=== PATIENT | female | born 1955 | race American Indian/Alaskan Native ===

== ENCOUNTER 2017-12-07 20:11 | Inpatient (IN) | payer MEDICARE ==
[2017-12-07] MEDS ORDERED: DUONEB *Not for PRN Use IH ONE (20:24)
--- NOTE | 2017-12-08 00:26 | Emergency Department Report ---
ED Shortness of Breath HPI - General Chief Complaint: Dyspnea/Respdistress Stated Complaint: PRATEEK / SOB Time Seen by Provider: 12/08/17 00:22 Source: patient Mode of arrival: Ambulatory Limitations: No Limitations - History of Present Illness Initial Comments: 62-year-old female that presents emergency room with complaints of respiratory distress and discharged on exertion and shortness of breath and chest pain for 3 days. . Patient states she feels bad for the last 3 days. Patient states she ran out of her inhalers any months ago. Patient states she supposed be taking Advair and albuterol when necessary. Patient has a history of COPD and multiple COPD exacerbations. Patient denies fever and chills. Patient denies diaphoresis. Patient states the chest pain is in her left chest, substernal and nonradiating. Patient states that all her symptoms are worse with exertion and movement and walking and talking. Patient states they're better with rest. MD Complaint: shortness of breath, cough, chest pain -: Sudden, days(s) Severity: severe (3 days) Pain Scale: 6 Quality: throbbing, sharp, stabbing Consistency: constant Improves With: oxygen, rest, bronchodilators Worsens With: lying flat, exertion, movement, coughing, inspiration Known History Of: COPD, asthma Context: recent URI, medication noncompliance Associated Symptoms: chest pain, pain with inspiration, cough, sputum production Treatments Prior to Arrival: bronchodilator - Related Data Home Oxygen Therapy: No Allergies Allergy/AdvReac Type Severity Reaction Status Date / Time IVP Dye Allergy Unknown Uncoded 12/07/17 20:19 ED Review of Systems ROS: Stated complaint: PRATEEK / SOB Other details as noted in HPI Comment: All other systems reviewed and negative Constitutional: denies: chills, fever Eyes: denies: eye pain, eye discharge, vision change ENT: denies: ear pain, throat pain Respiratory: see HPI, cough, orthopnea, shortness of breath, SOB with exertion, SOB at rest, wheezing Cardiovascular: chest pain. denies: palpitations Endocrine: no symptoms reported Gastrointestinal: denies: abdominal pain, nausea, diarrhea Genitourinary: denies: urgency, dysuria, discharge Musculoskeletal: denies: back pain, joint swelling, arthralgia Skin: denies: rash, lesions Neurological: denies: headache, weakness, paresthesias Psychiatric: denies: anxiety, depression Hematological/Lymphatic: denies: easy bleeding, easy bruising ED Past Medical Hx - Past Medical History Previous Medical History?: Yes Hx Asthma: Yes Hx COPD: Yes Additional medical history: bronchitis - Surgical History Past Surgical History?: No - Family History Family history: hypertension - Social History Smoking Status: Current Every Day Smoker Substance Use Type: None ED Physical Exam - General Limitations: No Limitations General appearance: alert, in no apparent distress - Head Head exam: Present: atraumatic, normocephalic - Eye Eye exam: Present: normal appearance - ENT ENT exam: Present: mucous membranes moist - Neck Neck exam: Present: normal inspection - Respiratory Respiratory exam: Present: normal lung sounds bilaterally. Absent: respiratory distress - Cardiovascular Cardiovascular Exam: Present: regular rate, normal rhythm. Absent: systolic murmur, diastolic murmur, rubs, gallop - GI/Abdominal GI/Abdominal exam: Present: soft, normal bowel sounds - Extremities Exam Extremities exam: Present: normal inspection - Back Exam Back exam: Present: normal inspection - Neurological Exam Neurological exam: Present: alert, oriented X3 - Psychiatric Psychiatric exam: Present: normal affect, normal mood - Skin Skin exam: Present: warm, dry, intact, normal color. Absent: rash ED Course Vital Signs 12/07/17 12/07/17 12/07/17 20:19 20:44 21:00 Temperature 98.5 F Pulse Rate 108 H Pulse Rate [ 88 91 H Anterior Bilateral Throughout] Respiratory 22 Rate Respiratory 22 20 Rate [Anterior Bilateral Throughout] Blood Pressure 162/103 O2 Sat by Pulse 99 Oximetry 12/08/17 12/08/17 12/08/17 00:48 01:00 01:11 Temperature Pulse Rate 73 73 Pulse Rate [ Anterior Bilateral Throughout] Respiratory 34 H Rate Respiratory Rate [Anterior Bilateral Throughout] Blood Pressure 137/77 145/76 O2 Sat by Pulse 94 95 Oximetry 12/08/17 12/08/17 12/08/17 01:12 01:15 01:30 Temperature Pulse Rate 87 75 Pulse Rate [ Anterior Bilateral Throughout] Respiratory 22 27 H 14 Rate Respiratory Rate [Anterior Bilateral Throughout] Blood Pressure 141/93 137/98 O2 Sat by Pulse 96 97 95 Oximetry 12/08/17 12/08/17 12/08/17 01:45 02:01 02:15 Temperature Pulse Rate 81 69 74 Pulse Rate [ Anterior Bilateral Throughout] Respiratory 25 H 26 H 29 H Rate Respiratory Rate [Anterior Bilateral Throughout] Blood Pressure 136/94 O2 Sat by Pulse 97 96 97 Oximetry 12/08/17 12/08/17 12/08/17 02:31 02:45 03:00 Temperature Pulse Rate 76 73 68 Pulse Rate [ Anterior Bilateral Throughout] Respiratory 33 H 32 H 31 H Rate Respiratory Rate [Anterior Bilateral Throughout] Blood Pressure 132/93 132/93 131/92 O2 Sat by Pulse 96 97 92 Oximetry 12/08/17 12/08/17 12/08/17 03:15 03:31 03:45 Temperature Pulse Rate 66 68 Pulse Rate [ Anterior Bilateral Throughout] Respiratory 28 H 18 Rate Respiratory Rate [Anterior Bilateral Throughout] Blood Pressure 131/92 131/92 131/92 O2 Sat by Pulse 97 97 96 Oximetry 12/08/17 04:01 Temperature Pulse Rate Pulse Rate [ Anterior Bilateral Throughout] Respiratory Rate Respiratory Rate [Anterior Bilateral Throughout] Blood Pressure 131/92 O2 Sat by Pulse 100 Oximetry - Reevaluation(s) Reevaluation #1: Discussed plan to admit patient with patient. All labs and results discussed with patient. Patient agrees with plan of care 12/08/17 03:36 ED Medical Decision Making - Lab Data Result diagrams: 12/08/17 00:41 12/08/17 00:41 - EKG Data -: EKG Interpreted by Me EKG shows normal: sinus rhythm, axis, intervals, QRS complexes, ST-T waves Rate: normal - EKG Data Interpretation: no acute changes, normal EKG - Radiology Data Radiology results: report reviewed, image reviewed interpreted by me: No acute findings - Medical Decision Making Patient is a 62-year-old female who presents to emergency room with chest pain shortness of breath and COPD exacerbation. Will discuss case with hospitalist or admission. Dr. Brady agreed to admit. - Differential Diagnosis copd. cp. sob. copd exac. cough Critical care attestation.: If time is entered above; I have spent that time in minutes in the direct care of this critically ill patient, excluding procedure time. ED Disposition Clinical Impression: Chest pain, Shortness of breath, COPD exacerbation Disposition: OP ADMIT IP TO THIS HOSP Is pt being admited?: Yes Does the pt Need Aspirin: No Condition: Serious Time of Disposition: 04:04
[2017-12-08] MEDS ORDERED: ASPIRIN PO ONE (00:28)
[2017-12-08 00:58] LABS: Basophils % (Auto) 0.3 % (0.0-1.8); Eosinophils # (Auto) 0.4 K/mm3 (0.0-0.4); Eosinophils % (Auto) 3.3 % (0.0-4.3); Hematocrit 32.6 % (30.3-42.9); Hemoglobin 10.6 gm/dl (10.1-14.3); Lymphocytes # (Auto) 1.8 K/mm3 (1.2-5.4); Lymphocytes % (Auto) 14.8 % (13.4-35.0); Mean Corpuscular HGB Conc 33 % (30-34); Mean Corpuscular Hemoglobin 29 pg (28-32); Mean Corpuscular Volume 88 fl (79-97); Monocytes # (Auto) 0.8 K/mm3 (0.0-0.8); Monocytes % (Auto) 6.4 % (0.0-7.3); Platelet Count 234 K/mm3 (140-440); Red Cell Distribution Width 11.9 % (13.2-15.2)
[2017-12-08 01:19] LABS: INR 0.96 (0.87-1.13)
[2017-12-08 01:20] LABS: Partial Thromboplastin Time 36.5 Sec. (24.2-36.6)
--- NOTE | 2017-12-08 01:22 | XRay Report ---
FINAL REPORT EXAM: XR CHEST 1V AP HISTORY: Chest Pain COMPARISON: None available. FINDINGS: Frontal view(s) of the chest obtained. Cardiac silhouette within normal limits. No gross consolidation or effusion. No pneumothorax. IMPRESSION: No grossly acute findings.
[2017-12-08 01:28] LABS: Alanine Aminotransferase 13 units/L (7-56); BUN/Creatinine Ratio 23; Blood Urea Nitrogen 18 mg/dL (7-17); Calcium 8.9 mg/dL (8.4-10.2); Hemolysis Index 0
[2017-12-08] MEDS ORDERED: ROCEPHIN/NS 1 GM/50 ML 1 GM/50 ML BAG IV ONE (02:36)
[2017-12-08] MEDS ORDERED: cefTRIAXone 1 GM in NACL 0.9% 20 ML IV ONE (03:00)
[2017-12-08] MEDS ORDERED: DUONEB *Not for PRN Use IH ONE (04:17)
[2017-12-08] MEDS ORDERED: DUONEB *Not for PRN Use IH SCH (08:00)
--- NOTE | 2017-12-08 08:19 | History and Physical Report ---
History of Present Illness Date of examination: 12/08/17 Date of admission: 12/08/17 06:49 Chief complaint: Shortness of breath History of present illness: Patient is a 62 year female with past medical history of multiple allergies, asthma, possible COPD who reports that she normally takes Advair and albuterol and gets an allergy shot every week but since moving to [place] has not been able to establish with a physician and had run out before her medications. She reports to the hospital complaining of 3 day worsening shortness of breath and nonproductive cough with no fever or chills. She denies any recent sick contacts. She denies any chest pain ROS Constitutional: No fever, fatigue or weight loss. Skin: No rash. Eyes: No recent vision problems or eye pain. ENT: No congestion, ear pain, or sore throat. Endocrine: No thyroid problems. Cardiovascular: No chest pain. Respiratory: Reports cough, shortness of breath, but no congestion, or wheezing. Gastrointestinal: No abdominal pain, nausea, vomiting, or diarrhea. Genitourinary: No dysuria. Musculoskeletal: No joint swelling. Neurologic: No seizures. Hematologic: No unusual bruising or bleeding. Psychiatric: No psychiatric problems, hallucinations or depression. All other systems reviewed and otherwise negative. Past History Past Medical History: COPD, hypertension, other (asthma) Past Surgical History: No surgical history Social history: full code. denies: smoking (quit smoking a few years ago), alcohol abuse, IV drug use Family history: no significant family history Medications and Allergies Allergies Allergy/AdvReac Type Severity Reaction Status Date / Time IVP Dye Allergy Unknown Uncoded 12/07/17 20:19 Active Meds: Active Medications Albuterol/Ipratropium (Duoneb *Not For Prn Use*) 1 ampul TIDRT PENDING SALE TO [facility] Exam - Physical Exam Narrative exam: VITAL SIGNS: Reviewed. GENERAL: The patient appeared well nourished and normally developed. Vital signs as documented. HEAD: No signs of head trauma. EYES: Pupils are equal. Extraocular motions intact. EARS: Hearing grossly intact. MOUTH: Oropharynx is normal. NECK: No adenopathy, no JVD. CHEST: Chest with clear breath sounds bilaterally. No wheezes, rales, or rhonchi. CARDIAC: Regular rate and rhythm. S1 and S2, without murmurs, gallops, or rubs. VASCULAR: No Edema. Peripheral pulses normal and equal in all extremities. ABDOMEN: Soft, without detectable tenderness. No sign of distention. No rebound or guarding, and no masses palpated. Bowel Sounds normal. MUSCULOSKELETAL: Good range of motion of all major joints. Extremities without clubbing, cyanosis or edema. NEUROLOGIC EXAM: Alert and oriented x 3. No focal sensory or strength deficits. Speech normal. Follows commands. PSYCHIATRIC: Mood normal. SKIN: No rash or lesions. - Constitutional Vitals: Temp Pulse Resp BP Pulse Ox 98.5 F 68 18 150/99 96 12/07/17 20:19 12/08/17 03:31 12/08/17 03:31 12/08/17 07:30 12/08/17 07:30 Results - Labs CBC & Chem 7: 12/09/17 05:12 12/09/17 05:12 Labs: Laboratory Last Values WBC 11.9 K/mm3 (4.5-11.0) H 12/08/17 00:41 RBC 3.70 M/mm3 (3.65-5.03) 12/08/17 00:41 Hgb 10.6 gm/dl (10.1-14.3) 12/08/17 00:41 Hct 32.6 % (30.3-42.9) 12/08/17 00:41 MCV 88 fl (79-97) 12/08/17 00:41 MCH 29 pg (28-32) 12/08/17 00:41 MCHC 33 % (30-34) 12/08/17 00:41 RDW 11.9 % (13.2-15.2) L 12/08/17 00:41 Plt Count 234 K/mm3 (140-440) 12/08/17 00:41 Lymph % (Auto) 14.8 % (13.4-35.0) 12/08/17 00:41 [place] % (Auto) 6.4 % (0.0-7.3) 12/08/17 00:41 Eos % (Auto) 3.3 % (0.0-4.3) 12/08/17 00:41 Baso % (Auto) 0.3 % (0.0-1.8) 12/08/17 00:41 Lymph # 1.8 K/mm3 (1.2-5.4) 12/08/17 00:41 [place] # 0.8 K/mm3 (0.0-0.8) 12/08/17 00:41 Eos # 0.4 K/mm3 (0.0-0.4) 12/08/17 00:41 Baso # 0.0 K/mm3 (0.0-0.1) 12/08/17 00:41 Seg Neutrophils % 75.2 % (40.0-70.0) H 12/08/17 00:41 Seg Neutrophils # 8.9 K/mm3 (1.8-7.7) H 12/08/17 00:41 PT 13.3 Sec. (12.2-14.9) 12/08/17 00:41 INR 0.96 (0.87-1.13) 12/08/17 00:41 APTT 36.5 Sec. (24.2-36.6) 12/08/17 00:41 Sodium 141 mmol/L (137-145) 12/08/17 00:41 Potassium 3.6 mmol/L (3.6-5.0) 12/08/17 00:41 Chloride 101.0 mmol/L (98-107) 12/08/17 00:41 Carbon Dioxide 27 mmol/L (22-30) 12/08/17 00:41 Anion Gap 17 mmol/L 12/08/17 00:41 BUN 18 mg/dL (7-17) H 12/08/17 00:41 Creatinine 0.8 mg/dL (0.7-1.2) 12/08/17 00:41 Estimated GFR > 60 ml/min 12/08/17 00:41 BUN/Creatinine Ratio 23 % 12/08/17 00:41 Glucose 147 mg/dL (65-100) H 12/08/17 00:41 Calcium 8.9 mg/dL (8.4-10.2) 12/08/17 00:41 Total Bilirubin 0.20 mg/dL (0.1-1.2) 12/08/17 00:41 AST 22 units/L (5-40) 12/08/17 00:41 ALT 13 units/L (7-56) 12/08/17 00:41 Alkaline Phosphatase 66 units/L (35-129) 12/08/17 00:41 Troponin T < 0.010 ng/mL (0.00-0.029) 12/08/17 00:41 Total Protein 6.3 g/dL (6.3-8.2) 12/08/17 00:41 Albumin 4.0 g/dL (3.9-5) 12/08/17 00:41 Albumin/Globulin Ratio 1.7 % 12/08/17 00:41 - Imaging and Cardiology Chest x-ray: image reviewed (no acute pathology noted) Assessment and Plan Assessment and plan: Patient is a 62 year female with past medical history of multiple allergies, asthma, possible COPD who reports that she normally takes Advair and albuterol and gets an allergy shot every week but since moving to [place] has not been able to establish with a physician and had run out before her medications. She reports to the hospital complaining of 3 day worsening shortness of breath and nonproductive cough with no fever or chills. She denies any recent sick contacts. She denies any chest pain Asthma exacerbation Allergy-unknown particularly etiology Acute respiratory failure Hypertension Plan Admit to [facility] Start on oxygen Tapering dose of steroids Restart on nebulizer We'll add peak flow meter DVT and GI prophylaxis Advance Directives: Yes Plan of care discussed with patient/family: Yes
[2017-12-08] MEDS ORDERED: PROVENTIL IH PRN (08:22)
[2017-12-08] MEDS ORDERED: TYLENOL PO PRN (08:22)
[2017-12-08] MEDS ORDERED: DULCOLAX PR PRN (08:22)
[2017-12-08] MEDS ORDERED: ZOFRAN IV PRN (08:22)
[2017-12-08] MEDS ORDERED: MILK OF MAGNESIA PO PRN (08:22)
[2017-12-08 08:24] LABS: Bilirubin,Urine NEG (Negative); Blood,Urine NEG (Negative); Color,Urine Yellow (Yellow); Nitrite,Urine NEG (Negative); Protein,Urine <15 mg/dL mg/dL (Negative); RBC,Urine < 1.0 /HPF (0.0-6.0); Urobilinogen,Urine < 2.0 mg/dL (<2.0); WBC,Urine < 1.0 /HPF (0.0-6.0)
[2017-12-08 08:38] LABS: Amphetamine Screen,Urine PRESUMPTIVE NEGATIVE; Benzodiazepines Screen,Urine PRESUMPTIVE NEGATIVE; Cannabinoid Screen,Urine PRESUMPTIVE NEGATIVE; Cocaine Screen,Urine PRESUMPTIVE NEGATIVE; Methadone Screen,Urine PRESUMPTIVE NEGATIVE; Opiate Screen,Urine PRESUMPTIVE NEGATIVE
[2017-12-08] MEDS: PEPCID PO SCH ×2 (10:34→22:35)
[2017-12-08] MEDS: BROVANA NEBU IH SCH ×2 (11:20→21:28)
[2017-12-08] MEDS: PULMICORT IH SCH ×2 (11:20→20:03)
[2017-12-08] MEDS: DUONEB *Not for PRN Use IH SCH ×2 (13:25→20:03)
[2017-12-08] MEDS ORDERED: XANAX PO ONE (21:40)
[2017-12-08] MEDS: MOTRIN PO PRN (23:17)
[2017-12-09 05:59] LABS: Hematocrit 32.1 % (30.3-42.9); Hemoglobin 10.6 gm/dl (10.1-14.3); Mean Corpuscular HGB Conc 33 % (30-34); Mean Corpuscular Hemoglobin 28 pg (28-32); Mean Corpuscular Volume 86 fl (79-97); Platelet Count 215 K/mm3 (140-440); Red Blood Count 3.73 M/mm3 (3.65-5.03); Red Cell Distribution Width 12.1 % (13.2-15.2)
[2017-12-09 06:12] LABS: BUN/Creatinine Ratio 23; Blood Urea Nitrogen 16 mg/dL (7-17); Calcium 9.2 mg/dL (8.4-10.2); Hemolysis Index 6
[2017-12-09 07:07] LABS: Band Neutrophils # (Manual) 0.5 K/mm3; Total Cells Counted 100
[2017-12-09 07:08] LABS: Anisocytosis Few; Hypochromasia Few; Tear Drop Cells Rare
[2017-12-09] MEDS: BROVANA NEBU IH SCH ×2 (07:47→20:58)
[2017-12-09] MEDS: PULMICORT IH SCH ×2 (07:47→20:58)
[2017-12-09] MEDS: DUONEB *Not for PRN Use IH SCH ×3 (07:47→20:58)
[2017-12-09] MEDS: PEPCID PO SCH ×2 (11:09→21:53)
[2017-12-09] MEDS ORDERED: PNEUMOVAX 23 IM ONE (12:00)
[2017-12-09] MEDS ORDERED: XANAX PO PRN (12:23)
[2017-12-09] MEDS ORDERED: NORCO 5/325 PO PRN (12:23)
[2017-12-09] MEDS: MOTRIN PO PRN (12:47)
[2017-12-09] MEDS: CLARITIN PO SCH (13:31)
[2017-12-09] MEDS: cefTRIAXone 1 GM in NACL 0.9% 20 ML IV SCH (15:27)
--- NOTE | 2017-12-09 18:05 | Progress Note ---
Assessment and Plan Assessment and plan: Patient is a 62 year female with past medical history of multiple allergies, asthma, possible COPD who reports that she normally takes Advair and albuterol and gets an allergy shot every week but since moving to [place] has not been able to establish with a physician and had run out before her medications. She reports to the hospital complaining of 3 day worsening shortness of breath and nonproductive cough with no fever or chills. She denies any recent sick contacts. She denies any chest pain Asthma exacerbation Allergy-unknown particularly etiology Acute respiratory failure Hypertension Insomnia Manic behavior Plan Continue oxygen and supportive care patient possibly with underlying Psych illness, will restart home medications including alprazolam Obtain pulmonary consult Continue steroidS Patient had a manic outburst last night, possible due to steroids or underlying psych illness. will monitor. DVT and GI prophylaxis Plan discussed with the patient in detail History Interval history: patient seen and examined, still with shortness of breath and carrie during conversation. patient states has been ongoing for 6 months or more. Hospitalist Physical - Physical exam Narrative exam: VITAL SIGNS: Reviewed. GENERAL: The patient appeared well nourished and normally developed. Vital signs as documented. HEAD: No signs of head trauma. EYES: Pupils are equal. Extraocular motions intact. EARS: Hearing grossly intact. MOUTH: Oropharynx is normal. NECK: No adenopathy, no JVD. CHEST: Chest with diminished breath sounds bilaterally. Increased wob with speech. CARDIAC: Regular rate and rhythm. S1 and S2, without murmurs, gallops, or rubs. VASCULAR: No Edema. Peripheral pulses normal and equal in all extremities. ABDOMEN: Soft, without detectable tenderness. No sign of distention. No rebound or guarding, and no masses palpated. Bowel Sounds normal. MUSCULOSKELETAL: Good range of motion of all major joints. Extremities without clubbing, cyanosis or edema. NEUROLOGIC EXAM: Alert and oriented x 3. No focal sensory or strength deficits. Speech normal. Follows commands. PSYCHIATRIC: Mood normal. SKIN: No rash or lesions. - Constitutional Vitals: Temp Pulse Resp BP Pulse Ox 99.2 F 88 18 168/97 93 12/09/17 15:39 12/09/17 15:39 12/09/17 15:39 12/09/17 15:39 12/09/17 15:39 Results - Labs CBC & Chem 7: 12/09/17 05:12 12/09/17 05:12 Labs: Laboratory Last Values WBC 18.2 K/mm3 (4.5-11.0) H 12/09/17 05:12 RBC 3.73 M/mm3 (3.65-5.03) 12/09/17 05:12 Hgb 10.6 gm/dl (10.1-14.3) 12/09/17 05:12 Hct 32.1 % (30.3-42.9) 12/09/17 05:12 MCV 86 fl (79-97) 12/09/17 05:12 MCH 28 pg (28-32) 12/09/17 05:12 MCHC 33 % (30-34) 12/09/17 05:12 RDW 12.1 % (13.2-15.2) L 12/09/17 05:12 Plt Count 215 K/mm3 (140-440) 12/09/17 05:12 Lymph % (Auto) 14.8 % (13.4-35.0) 12/08/17 00:41 [place] % (Auto) 6.4 % (0.0-7.3) 12/08/17 00:41 Eos % (Auto) 3.3 % (0.0-4.3) 12/08/17 00:41 Baso % (Auto) 0.3 % (0.0-1.8) 12/08/17 00:41 Lymph # 1.8 K/mm3 (1.2-5.4) 12/08/17 00:41 [place] # 0.8 K/mm3 (0.0-0.8) 12/08/17 00:41 Eos # 0.4 K/mm3 (0.0-0.4) 12/08/17 00:41 Baso # 0.0 K/mm3 (0.0-0.1) 12/08/17 00:41 Add Manual Diff Complete 12/09/17 05:12 Total Counted 100 12/09/17 05:12 Seg Neutrophils % Mechanical Maintenance Engineer 12/09/17 05:12 Seg Neuts % (Manual) 79.0 % (40.0-70.0) H 12/09/17 05:12 Band Neutrophils % 3.0 % 12/09/17 05:12 Lymphocytes % (Manual) 10.0 % (13.4-35.0) L 12/09/17 05:12 Reactive Lymphs % (Man) 0 % 12/09/17 05:12 Monocytes % (Manual) 6.0 % (0.0-7.3) 12/09/17 05:12 Metamyelocytes % 2.0 % 12/09/17 05:12 Myelocytes % 0 % 12/09/17 05:12 Promyelocytes % 0 % 12/09/17 05:12 Blast Cells % 0 % 12/09/17 05:12 Nucleated RBC % Not Reportable 12/09/17 05:12 Seg Neutrophils # 8.9 K/mm3 (1.8-7.7) H 12/08/17 00:41 Seg Neutrophils # Man 14.4 K/mm3 (1.8-7.7) H 12/09/17 05:12 Band Neutrophils # 0.5 K/mm3 12/09/17 05:12 Lymphocytes # (Manual) 1.8 K/mm3 (1.2-5.4) 12/09/17 05:12 Abs React Lymphs (Man) 0.0 K/mm3 12/09/17 05:12 Monocytes # (Manual) 1.1 K/mm3 (0.0-0.8) H 12/09/17 05:12 Eosinophils # (Manual) 0.0 K/mm3 (0.0-0.4) 12/09/17 05:12 Basophils # (Manual) 0.0 K/mm3 (0.0-0.1) 12/09/17 05:12 Metamyelocytes # 0.4 K/mm3 12/09/17 05:12 Myelocytes # 0.0 K/mm3 12/09/17 05:12 Promyelocytes # 0.0 K/mm3 12/09/17 05:12 Blast Cells # 0.0 K/mm3 12/09/17 05:12 WBC Morphology Not Reportable 12/09/17 05:12 Hypersegmented Neuts Not Reportable 12/09/17 05:12 Hyposegmented Neuts Not Reportable 12/09/17 05:12 Hypogranular Neuts Not Reportable 12/09/17 05:12 Smudge Cells Not Reportable 12/09/17 05:12 Toxic Granulation Not Reportable 12/09/17 05:12 Toxic Vacuolation Not Reportable 12/09/17 05:12 Dohle Bodies Not Reportable 12/09/17 05:12 Pelger-Huet Anomaly Not Reportable 12/09/17 05:12 Ashley Rods Not Reportable 12/09/17 05:12 Platelet Estimate Appears normal 12/09/17 05:12 Clumped Platelets Not Reportable 12/09/17 05:12 Plt Clumps, EDTA Not Reportable 12/09/17 05:12 Large Platelets Not Reportable 12/09/17 05:12 Giant Platelets Not Reportable 12/09/17 05:12 Platelet Satelliting Not Reportable 12/09/17 05:12 Plt Morphology Comment Not Reportable 12/09/17 05:12 RBC Morphology Not Reportable 12/09/17 05:12 Dimorphic RBCs Not Reportable 12/09/17 05:12 Polychromasia Not Reportable 12/09/17 05:12 Hypochromasia Few 12/09/17 05:12 Poikilocytosis Not Reportable 12/09/17 05:12 Anisocytosis Few 12/09/17 05:12 Microcytosis Not Reportable 12/09/17 05:12 Macrocytosis Not Reportable 12/09/17 05:12 Spherocytes Not Reportable 12/09/17 05:12 Pappenheimer Bodies Not Reportable 12/09/17 05:12 Sickle Cells Not Reportable 12/09/17 05:12 Target Cells Not Reportable 12/09/17 05:12 Tear Drop Cells Rare 12/09/17 05:12 Ovalocytes Not Reportable 12/09/17 05:12 Helmet Cells Not Reportable 12/09/17 05:12 [place] Bodies Not Reportable 12/09/17 05:12 [place] Rings Not Reportable 12/09/17 05:12 [place] Cells Not Reportable 12/09/17 05:12 Bite Cells Not Reportable 12/09/17 05:12 Crenated Cell Not Reportable 12/09/17 05:12 Elliptocytes Not Reportable 12/09/17 05:12 Acanthocytes (Spur) Not Reportable 12/09/17 05:12 Rouleaux Not Reportable 12/09/17 05:12 Hemoglobin C Crystals Not Reportable 12/09/17 05:12 Schistocytes Not Reportable 12/09/17 05:12 Malaria parasites Not Reportable 12/09/17 05:12 Ashok Bodies Not Reportable 12/09/17 05:12 Hem Pathologist Commnt No 12/09/17 05:12 PT 13.3 Sec. (12.2-14.9) 12/08/17 00:41 INR 0.96 (0.87-1.13) 12/08/17 00:41 APTT 36.5 Sec. (24.2-36.6) 12/08/17 00:41 Sodium 139 mmol/L (137-145) 12/09/17 05:12 Potassium 4.4 mmol/L (3.6-5.0) D 12/09/17 05:12 Chloride 100.3 mmol/L (98-107) 12/09/17 05:12 Carbon Dioxide 23 mmol/L (22-30) 12/09/17 05:12 Anion Gap 20 mmol/L 12/09/17 05:12 BUN 16 mg/dL (7-17) 12/09/17 05:12 Creatinine 0.7 mg/dL (0.7-1.2) 12/09/17 05:12 Estimated GFR > 60 ml/min 12/09/17 05:12 BUN/Creatinine Ratio 23 % 12/09/17 05:12 Glucose 175 mg/dL (65-100) H 12/09/17 05:12 Calcium 9.2 mg/dL (8.4-10.2) 12/09/17 05:12 Total Bilirubin 0.20 mg/dL (0.1-1.2) 12/08/17 00:41 AST 22 units/L (5-40) 12/08/17 00:41 ALT 13 units/L (7-56) 12/08/17 00:41 Alkaline Phosphatase 66 units/L (35-129) 12/08/17 00:41 Troponin T < 0.010 ng/mL (0.00-0.029) 12/08/17 00:41 Total Protein 6.3 g/dL (6.3-8.2) 12/08/17 00:41 Albumin 4.0 g/dL (3.9-5) 12/08/17 00:41 Albumin/Globulin Ratio 1.7 % 12/08/17 00:41 Urine Color Yellow (Yellow) 12/08/17 07:56 Urine Turbidity Clear (Clear) 12/08/17 07:56 Urine pH 7.0 (5.0-7.0) 12/08/17 07:56 Ur Specific [place] 1.023 (1.003-1.030) 12/08/17 07:56 Urine Protein <15 mg/dl mg/dL (Negative) 12/08/17 07:56 Urine Glucose (UA) 150 mg/dL (Negative) 12/08/17 07:56 Urine Ketones Neg mg/dL (Negative) 12/08/17 07:56 Urine Blood Neg (Negative) 12/08/17 07:56 Urine Nitrite Neg (Negative) 12/08/17 07:56 Urine Bilirubin Neg (Negative) 12/08/17 07:56 Urine Urobilinogen < 2.0 mg/dL (<2.0) 12/08/17 07:56 Ur Leukocyte Esterase Neg (Negative) 12/08/17 07:56 Urine WBC (Auto) < 1.0 /HPF (0.0-6.0) 12/08/17 07:56 Urine RBC (Auto) < 1.0 /HPF (0.0-6.0) 12/08/17 07:56 U Epithel Cells (Auto) < 1.0 /HPF (0-13.0) 12/08/17 07:56 Urine Opiates Screen Presumptive negative 12/08/17 07:57 Urine Methadone Screen Presumptive negative 12/08/17 07:57 Ur Barbiturates Screen Presumptive negative 12/08/17 07:57 Ur Phencyclidine Scrn Presumptive negative 12/08/17 07:57 Ur Amphetamines Screen Presumptive negative 12/08/17 07:57 U Benzodiazepines Scrn Presumptive negative 12/08/17 07:57 Urine Cocaine Screen Presumptive negative 12/08/17 07:57 U Marijuana (THC) Screen Presumptive negative 12/08/17 07:57 Drugs of Abuse Note Disclamer 12/08/17 07:57
--- NOTE | 2017-12-09 20:15 | Consultation ---
History of Present Illness Consult date: 12/09/17 Reason for consult: dyspnea, cough, asthma History of present illness: PULMONARY CONSULTATION Dr. Stephen Thank you for asking us to participate in the care of this patient. This is 62 year old female admitted with shortness of breath and cough with productive yellow sputum.Patient also complaining nasal congestion and chest tightness. Denies sore throat.Denies fever and having some chills. Patient has history of asthma and multiple environmental allergies. Patient also allergic to IVP dye.Patient has short history of smoking 4 to 5 cigarets a day for 6 years.Stopped smoking several years ago. Denies alcohol or drug abuse. Patient not . 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 Patient denies other medical problems. Patient just moved from [place] to [place]. Past History Past Medical History: hypertension, other (asthma) Past Surgical History: No surgical history Social history: full code. denies: smoking (quit smoking a few years ago), alcohol abuse, IV drug use Family history: no significant family history Medications and Allergies Allergies Allergy/AdvReac Type Severity Reaction Status Date / Time IVP Dye Allergy Unknown Uncoded 12/07/17 20:19 Home Medications Medication Instructions Recorded Confirmed Last Taken Type ALPRAZolam [Xanax TAB] 0.5 mg PO 12/09/17 Unknown History Azithromycin [Zithromax Z-CHARLEY] 250 mg PO 12/09/17 Unknown History Betamethasone Dipropionate 0.05% TP 12/09/17 Unknown History Cream Docusate Sodium [Stool Softener] 100 mg PO BID 12/09/17 12/09/17 Unknown History Ferrous Sulfate [Iron] mg PO 12/09/17 Unknown History Fexofenadine HCl [Michelle Allergy] mg PO DAILY 12/09/17 Unknown History Fluticasone Propionate [Flovent 50 mg 12/09/17 Unknown History Diskus] Fluticasone/Salmeterol 500 mcg INHALATION BID 12/09/17 12/09/17 Unknown History [Fluticasone-Salmeterol 55-14] Hydrocodon-Acetamin 7.5-325/15 7.5 mg PO BID 12/09/17 12/09/17 Unknown History Ibuprofen [Motrin 600 MG tab] mg PO BID PRN 12/09/17 Unknown History Ipratropium Wall INNOSTRIL BID 12/09/17 Unknown History Medrol Dose Charley 4 mg PO 12/09/17 Unknown History Ranitidine HCl [Zantac 150 MG TAB] 150 mg PO BID 12/09/17 12/09/17 Unknown History Ventolin HFA 2 Q4H PRN 12/09/17 Unknown History guaiFENesin/DEXTROMETHORPHAN 100 mg PO 12/09/17 Unknown History [Guaicon Dms Liquid Packet] Active Meds: Active Medications Acetaminophen (Tylenol) 650 mg PO Q4H PRN PRN Reason: Pain MILD(1-3)/Fever >100.5/AGEE Last Admin: 12/08/17 10:34 Dose: 650 mg Acetaminophen/Hydrocodone Bitart ([place] 5/325) 1 each PO Q4H PRN PRN Reason: Pain, Moderate (4-6) Albuterol (Proventil) 2.5 mg IH Q4HRT PRN PRN Reason: Shortness Of Breath Albuterol/Ipratropium (Duoneb *Not For Prn Use*) 1 ampul IH TIDRT [facility] Last Admin: 12/09/17 13:24 Dose: 1 ampul Alprazolam (Xanax) 0.5 mg PO QHS PRN PRN Reason: Insomnia Arformoterol Tartrate (Brovana Nebu) 15 mcg IH Q12HRT [facility] Last Admin: 12/09/17 07:47 Dose: 15 mcg Bisacodyl (Dulcolax) 10 mg [place] QDAY PRN PRN Reason: Constipation unrelieved by MOM Budesonide (Pulmicort) 0.5 mg IH Q12HRT [facility] Last Admin: 12/09/17 07:47 Dose: 0.5 mg Famotidine (Pepcid) 20 mg PO BID [facility] Last Admin: 12/09/17 11:09 Dose: 20 mg Ceftriaxone Sodium 1 gm/ (Sodium Chloride) 20 mls @ 20 mls/10 min IV Q24HR [facility] PRN Reason: Protocol Last Admin: 12/09/17 15:27 Dose: 20 mls/10 min Ibuprofen (Motrin) 600 mg PO Q12HR PRN PRN Reason: Pain, Mild (1-3) Last Admin: 12/09/17 12:47 Dose: 600 mg Loratadine (Claritin) 10 mg PO QDAY [facility] Last Admin: 12/09/17 13:31 Dose: 10 mg Magnesium Hydroxide (Milk Of Magnesia) 30 ml PO Q4H PRN PRN Reason: Constipation Methylprednisolone Sodium Succinate (Solu-Medrol) 40 mg IV Q8HR [facility] Last Admin: 12/09/17 13:32 Dose: 40 mg Ondansetron HCl (Zofran) 4 mg IV Q8H PRN PRN Reason: N/V unrelieved by Reglan Review of Systems All systems: negative Physical Examination Vital signs: Vital Signs Temp Pulse Resp BP Pulse Ox 98.5 F 108 H 22 162/103 99 12/07/17 20:19 12/07/17 20:19 12/07/17 20:19 12/07/17 20:19 12/07/17 20:19 General appearance: no acute distress, alert, other (Anxious.) Eyes: non-icteric ENT: oropharynx dry Neck: supple, no JVD Ascultation: Bilateral: wheezes Cardiovascular: regular rate and rhythm Gastrointestinal: normoactive bowel sounds, soft, non-tender Integumentary: normal Extremities: no cyanosis, no edema Musculoskeletal: no deformities Gait: other (Patient is in the bed at this time.) non-focal exam, pupils equal and round, CN II-XII normal, other (Anxious.) anxious Results - Laboratory Findings CBC and BMP: 12/09/17 05:12 12/09/17 05:12 PT/INR, D-dimer PT 13.3 Sec. (12.2-14.9) 12/08/17 00:41 INR 0.96 (0.87-1.13) 12/08/17 00:41 Abnormal lab findings: Abnormal Labs 12/08/17 12/08/17 12/09/17 00:41 00:41 05:12 WBC 11.9 H 18.2 H RDW 11.9 L 12.1 L Seg Neutrophils % 75.2 H Seg Neuts % (Manual) 79.0 H Lymphocytes % (Manual) 10.0 L Seg Neutrophils # 8.9 H Seg Neutrophils # Man 14.4 H Monocytes # (Manual) 1.1 H BUN 18 H Glucose 147 H 12/09/17 05:12 WBC RDW Seg Neutrophils % Seg Neuts % (Manual) Lymphocytes % (Manual) Seg Neutrophils # Seg Neutrophils # Man Monocytes # (Manual) BUN Glucose 175 H - Diagnostic Findings Chest x-ray: report reviewed (No acute findings.), image reviewed Assessment and Plan This is 62 year old female admitted with shortness of breath and cough with productive yellow sputum.Patient also complaining nasal congestion and chest tightness. Denies sore throat.Denies fever and having some chills. Patient has history of asthma and multiple environmental allergies. Patient also allergic to IVP dye.Patient has short history of smoking 4 to 5 cigarets a day for 6 years.Stopped smoking several years ago. Denies alcohol or drug abuse. Patient not . 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 Patient denies other medical problems. Patient just moved from [place] to [place]. - Patient Problems (1) Acute exacerbation of asthma with allergic rhinitis Current Visit: Yes Status: Acute Plan to address problem: O2 supplementation 2 litre Albuterol/atrovent aerosol treatments q 6 hours. Increse solumedral 60 mg I/V q 6 hours. Recommend S/C Lovenox. Continue Famotadine. Continue ceftrioxone. Recommend to add zithromax also. Claritin 10 mg po qd prn for nasal congestion. (2) Acute bronchitis Current Visit: Yes Status: Acute Plan to address problem: Patient is on ceftrioxone. Recommend to add zithromax also.
[2017-12-10] MEDS: DUONEB *Not for PRN Use IH SCH ×2 (08:00→15:02)
[2017-12-10] MEDS: MOTRIN PO PRN (08:44)
[2017-12-10 08:45] VITALS: BP 160/101
--- NOTE | 2017-12-10 09:27 | Progress Note ---
Assessment and Plan Acute asthma exacerbation Asthma Allergy Hypertension Subjective Date of service: 12/10/17 Objective - Exam Narrative Exam: VITAL SIGNS: Reviewed. GENERAL: The patient appeared well nourished and normally developed. Vital signs as documented. HEAD: No signs of head trauma. EYES: Pupils are equal. Extraocular motions intact. EARS: Hearing grossly intact. MOUTH: Oropharynx is normal. NECK: No adenopathy, no JVD. CHEST: Chest with diminished breath sounds bilaterally. Increased wob with speech. CARDIAC: Regular rate and rhythm. S1 and S2, without murmurs, gallops, or rubs. VASCULAR: No Edema. Peripheral pulses normal and equal in all extremities. ABDOMEN: Soft, without detectable tenderness. No sign of distention. No rebound or guarding, and no masses palpated. Bowel Sounds normal. MUSCULOSKELETAL: Good range of motion of all major joints. Extremities without clubbing, cyanosis or edema. NEUROLOGIC EXAM: Alert and oriented x 3. No focal sensory or strength deficits. Speech normal. Follows commands. PSYCHIATRIC: Mood normal. SKIN: No rash or lesions. Vital Signs - 12hr 12/09/17 12/09/17 12/09/17 22:00 22:35 22:39 Temperature 98.1 F Pulse Rate 93 H 118 H Respiratory 20 Rate Blood Pressure 157/91 O2 Sat by Pulse 95 98 100 Oximetry 12/10/17 08:09 Temperature 98.0 F Pulse Rate 83 Respiratory 19 Rate Blood Pressure 160/101 O2 Sat by Pulse 96 Oximetry Constitutional: no acute distress, alert, other (Anxious.) Eyes: non-icteric ENT: oropharynx dry Neck: supple, no JVD Ascultation: Bilateral: wheezes Cardiovascular: regular rate and rhythm Gastrointestinal: normoactive bowel sounds, soft, non-tender Integumentary: normal Extremities: no cyanosis, no edema Neurologic: non-focal exam, pupils equal and round, CN II-XII normal, other ( Anxious.) Psychiatric: anxious CBC and BMP: 12/09/17 05:12 12/09/17 05:12 ABG, PT/INR, D-dimer: PT/INR, D-dimer PT 13.3 Sec. (12.2-14.9) 12/08/17 00:41 INR 0.96 (0.87-1.13) 12/08/17 00:41 Abnormal lab findings: Abnormal Labs 12/08/17 12/08/17 12/09/17 00:41 00:41 05:12 WBC 11.9 H 18.2 H RDW 11.9 L 12.1 L Seg Neutrophils % 75.2 H Seg Neuts % (Manual) 79.0 H Lymphocytes % (Manual) 10.0 L Seg Neutrophils # 8.9 H Seg Neutrophils # Man 14.4 H Monocytes # (Manual) 1.1 H BUN 18 H Glucose 147 H 12/09/17 05:12 WBC RDW Seg Neutrophils % Seg Neuts % (Manual) Lymphocytes % (Manual) Seg Neutrophils # Seg Neutrophils # Man Monocytes # (Manual) BUN Glucose 175 H
[2017-12-10] MEDS: BROVANA NEBU IH SCH (09:30)
[2017-12-10] MEDS: PULMICORT IH SCH (09:30)
[2017-12-10] MEDS: CLARITIN PO SCH (10:23)
[2017-12-10] MEDS: PEPCID PO SCH (10:23)
[2017-12-10] MEDS: cefTRIAXone 1 GM in NACL 0.9% 20 ML IV SCH (10:28)
--- NOTE | 2017-12-10 10:59 | Discharge Summary ---
Providers - Providers Date of Admission: 12/08/17 06:49 Attending physician: DANIELA CHANDRA MD 12/09/17 12:23 Consult to Physician [CONS] Routine Consulting Provider: EMMIE COLEMAN Reason For Exam: copd exacebation Place consult to:: [place] Notified:: YES Phone number called:: [phone] If yes, spoke with:: PAUL Time called:: 15:50 Primary care physician: TETO DEL ANGEL Hospitalization Condition: Stable Hospital course: Patient is a 62 year female with past medical history of multiple allergies, asthma, possible COPD who reports that she normally takes Advair and albuterol and gets an allergy shot every week but since moving to [place] has not been able to establish with a physician and had run out before her medications. She reports to the hospital complaining of 3 day worsening shortness of breath and nonproductive cough with no fever or chills. She denies any recent sick contacts. She denies any chest pain Asthma exacerbation Allergy-seasonal and enviromental Acute respiratory failure Hypertension Insomnia Manic behavior Plan Continue oxygen and supportive care patient possibly with underlying Psych illness, will restart home medications including alprazolam Obtain pulmonary consult Continue steroidS Patient had a manic outburst last night, possible due to steroids or underlying psych illness. will monitor. DVT and GI prophylaxis Plan discussed with the patient in detail History Disposition: DC-01 TO HOME OR SELFCARE Time spent for discharge: 35 mins Exam - Physical Exam Narrative exam: VITAL SIGNS: Reviewed. GENERAL: The patient appeared well nourished and normally developed. Vital signs as documented. HEAD: No signs of head trauma. EYES: Pupils are equal. Extraocular motions intact. EARS: Hearing grossly intact. MOUTH: Oropharynx is normal. NECK: No adenopathy, no JVD. CHEST: Chest with diminished breath sounds bilaterally. Increased wob with speech. CARDIAC: Regular rate and rhythm. S1 and S2, without murmurs, gallops, or rubs. VASCULAR: No Edema. Peripheral pulses normal and equal in all extremities. ABDOMEN: Soft, without detectable tenderness. No sign of distention. No rebound or guarding, and no masses palpated. Bowel Sounds normal. MUSCULOSKELETAL: Good range of motion of all major joints. Extremities without clubbing, cyanosis or edema. NEUROLOGIC EXAM: Alert and oriented x 3. No focal sensory or strength deficits. Speech normal. Follows commands. PSYCHIATRIC: Mood normal. SKIN: No rash or lesions. - Constitutional Vitals: Temp Pulse Resp BP Pulse Ox 98.0 F 83 19 160/101 96 12/10/17 08:09 12/10/17 08:09 12/10/17 08:09 12/10/17 08:09 12/10/17 08:09 Plan Activity: advance as tolerated, fall precautions Diet: low cholesterol Special Instructions: record daily weights, record daily BP diary, smoking cessation Follow up with: TETO DEL ANGEL MD [Primary Care Provider] - 3-5 Days [facility] [Outside] - 7 Days EMMIE COLEMAN MD [Staff Physician] - 7 Days Prescriptions: ALPRAZolam [Xanax TAB] 0.5 mg PO QHS PRN #30 tablet PRN Reason: Insomnia Betamethasone Dipropionate 0.05% Cream 1 inch TP DAILY #30 Ferrous Sulfate [Iron] 325 mg PO BID #60 tablet Fexofenadine/Pseudoephedrine [Michelle-D 24 Hour Tablet] 1 each PO DAILY #30 tab.er.24h Fluticasone Propionate [Flovent Diskus] 50 mg INHALATION BID #1 blst.w.dev Fluticasone/Salmeterol [Fluticasone-Salmeterol 55-14] 500 mcg INHALATION BID #1 aer.pow.ba guaiFENesin/DEXTROMETHORPHAN [Guaicon Dms Liquid Packet] 100 mg PO BID 10 Days liquid.pkt Hydrocodon-Acetamin 7.5-325/15 7.5 mg PO BID #14 Ipratropium/Albuterol Sulfate [DUONEB *Not for PRN Use*] 1 ampul IH Q6HR #90 ampul.neb Levofloxacin [Levaquin] 750 mg PO QDAY #5 tablet Montelukast [Singulair] 10 mg PO QPM #30 tablet predniSONE [Deltasone] 10 mg PO .TAPER #48 tab Ranitidine HCl [Zantac 150 MG TAB] 150 mg PO BID #60 tablet
== END 2017-12-10 15:55 | disposition home or self-care (01) | DRG 189 ==
LOC: ED 20:11 → 3A 12-08 06:49
PROVIDERS: ADMIT Internal Medicine; ATTEND Internal Medicine
PROC: 3E0234Z Introduction of Serum, Toxoid and Vaccine into Muscle, Percutaneous Approach (ICD-10-PCS; principal; 2017-12-09)
PROC: 4A033R1 Measurement of Arterial Saturation, Peripheral, Percutaneous Approach (ICD-10-PCS; 2017-12-10)
DX: J96.00 Acute respiratory failure, unspecified whether with hypoxia or hypercapnia (principal); J44.1 Chronic obstructive pulmonary disease with (acute) exacerbation; J45.901 Unspecified asthma with (acute) exacerbation; J44.0 Chronic obstructive pulmonary disease with (acute) lower respiratory infection; F30.9 Manic episode, unspecified; Z23 Encounter for immunization; Z91.041 Radiographic dye allergy status; Z82.49 Family history of ischemic heart disease and other diseases of the circulatory system; F17.200 Nicotine dependence, unspecified, uncomplicated; I10 Essential (primary) hypertension; G47.00 Insomnia, unspecified; J20.9 Acute bronchitis, unspecified
CPT/HCPCS: 36415; 36600; 71045; 80048; 80053; 80307; 81001; 82803; 84484; 85007; 85025; 85610; 85730; 90732; 93005; 93010; 94640; 94760; 96374; 96375; J0696; J2920; J2930